=== PATIENT | female | born 1995 | race American Indian/Alaskan Native ===

== ENCOUNTER 2017-04-10 03:02 | Emergency (ER) | payer OTHER ==
[2017-04-10 03:09] VITALS: BP 109/73
[2017-04-10] MEDS ORDERED: BENADRYL PO ONE (03:20)
[2017-04-10] MEDS ORDERED: DELTASONE PO ONE (03:20)
--- NOTE | 2017-04-10 03:20 | Emergency Department Report ---
HPI - General Chief Complaint: Allergic Reaction Time Seen by Provider: 04/10/17 04:45 - HPI HPI: Patient is a 21-year-old female with a history of MS who presents the ED stating she woke up earlier today and started experiencing some itching on her arms. Patient states itching got worse and she saw some whelps and rash develop on her bilateral arms spreading to her neck and forehead. Patient states she does not recall coming to contact preventing or eating any new foods. She denies fevers/chills/nausea/vomiting/abdominal pain/chest pain/diarrhea/ shortness of breath or swelling of the mouth or tongue ED Past Medical Hx - Past Medical History Previous Medical History?: Yes Additional medical history: MS - Surgical History Past Surgical History?: No - Social History Smoking Status: Never Smoker Substance Use Type: None - Medications Home Medications: Home Medications Medication Instructions Recorded Confirmed Last Taken Type Famotidine [Pepcid] 20 mg PO BID #10 tablet 04/10/17 Unknown Rx diphenhydrAMINE [Benadryl CAP] 25 mg PO QHS PRN #30 capsule 04/10/17 Unknown Rx predniSONE [Deltasone] 10 mg PO QDAY #5 tab 04/10/17 Unknown Rx ED Review of Systems ROS: Stated complaint: ALLERGIC REACTION Other details as noted in HPI Constitutional: denies: chills, fever Eyes: denies: eye pain, eye discharge, vision change ENT: denies: ear pain, throat pain Respiratory: denies: cough, shortness of breath, wheezing Cardiovascular: denies: chest pain, palpitations Endocrine: no symptoms reported Gastrointestinal: denies: abdominal pain, nausea, diarrhea Genitourinary: denies: urgency, dysuria, discharge Musculoskeletal: denies: back pain, joint swelling, arthralgia Skin: rash, pruritus. denies: lesions Neurological: denies: headache, weakness, numbness, paresthesias Psychiatric: denies: anxiety, depression Hematological/Lymphatic: denies: easy bleeding, easy bruising Physical Exam - Physical Exam Vital Signs: Vital Signs 04/10/17 03:05 Temperature 99.1 F Pulse Rate 72 Respiratory 20 Rate Blood Pressure 109/73 O2 Sat by Pulse 99 Oximetry Physical Exam: GENERAL: Alert and oriented x3, no apparent distress, Normal Gait, atraumatic. HEAD: Head is normocephalic and a-traumatic. MOUTH:Mouth is well hydrated and without lesions. Tonsils nonerythematous or swollen, Uvula midline, Tongue not elevated. Mucous membranes are moist. Posterior pharynx clear, no exudate or lesions. Patent airways. LUNGS: Symetrical with respiration, No wheezing, no rales or crackles, CTAB. HEART: S1, S2 present, regular rate and rhythm without murmur, no rubs, no gallops. Non tender to palpation ABDOMEN: No organomegaly was noted,Positive bowel sounds, soft, and non- distended. . Nontender to palpation on all Quadrants, NO CVA tenderness. SKIN: Warm and dry, mild generalized hives. No lesions, No ulceration or induration present. ED Course Vital Signs 04/10/17 03:05 Temperature 99.1 F Pulse Rate 72 Respiratory 20 Rate Blood Pressure 109/73 O2 Sat by Pulse 99 Oximetry ED Medical Decision Making - Medical Decision Making 21-year-old Female presented to allergic dermatitis. ED course: Patient received prednisone 60 and Benadryl ED Discussed patient with follow-up with primary care physician Vital signs are normal patient is not acutely distressed She reports feeling a bit better itching resolved Patient is alert and oriented 3 she is in no distress sitting comfortably in the bed Critical care attestation.: If time is entered above; I have spent that time in minutes in the direct care of this critically ill patient, excluding procedure time. ED Disposition Clinical Impression: Allergic dermatitis Disposition: DC-01 TO HOME OR SELFCARE Is pt being admited?: No Does the pt Need Aspirin: No Condition: Stable Instructions: Eczema (ED), Urticaria (ED) Prescriptions: diphenhydrAMINE [Benadryl CAP] 25 mg PO QHS PRN #30 capsule PRN Reason: Allergic Reaction Famotidine [Pepcid] 20 mg PO BID #10 tablet predniSONE [Deltasone] 10 mg PO QDAY #5 tab Referrals: OLMAN ANTHONY MD [Referring] - 3-5 Days [facility] [Outside] - 3-5 Days [facility] [Outside] - 3-5 Days Forms: Accompanied Note, Work/School Release Form(ED) Time of Disposition: 05:06
== END 2017-04-10 05:42 | disposition home or self-care (01) ==
LOC: ED 03:02
DX: L23.9 Allergic contact dermatitis, unspecified cause (principal)
CPT/HCPCS: 99282; J7512; Q0163